=== PATIENT | male | born 1960 | race Caucasian/White ===

== ENCOUNTER 2016-12-03 00:52 | Emergency (ER) | payer BC ==
--- NOTE | ~2016-12-03 | ER ---
PATIENT'S NAME: PEDRO LUIS BAUMAN [facility] AGE: 56 Y [address] ROOM: [place] [address] LOCATION: [facility] ADMIT DATE: 12/03/2016 ER/Outpatient Report DISCHARGE DATE: FAMILY PHYSICIAN: PHYSICIAN, NO ATTENDING PHYSICIAN: Daniele Frazier Admission date and time documented on the medical record. I saw the patient at 0100 hours. CHIEF COMPLAINT: Left low back pain. HISTORY OF PRESENT ILLNESS: The patient is a 56-year-old male, who on morning started to help one of his family members move. So, he did a lot of heavy lifting, pushing, pulling. He developed pain in the left lower back area, acute onset around 0930 hours. He has some chronic back problem with scoliosis and previous back injuries. He has not had any back surgeries. So, he has had an intermittent chronic problem with his back. He has no leg pain. No bowel or bladder dysfunction. No chest pain or shortness of breath. No recent illnesses, cough, cold, flus, fever, chills, or sweats. He does have a history of degenerative osteoarthritis and degenerative disk disease. HOME MEDICATIONS: None. ALLERGIES: NONE. SOCIAL HISTORY: The patient smokes 1-2 packs of cigarettes per day. Nondrinker. SIGNIFICANT PAST MEDICAL HISTORY: Degenerative osteoarthritis, scoliosis, and tobacco abuse. OPERATIONS: None. REVIEW OF SYSTEMS: All systems reviewed by me are negative with exception of those discussed in the history of present illness. PHYSICAL EXAMINATION: VITAL SIGNS: Temperature 97.7, tympanic; pulse 88; respirations 16; blood pressure 121/69; O2 saturation on room air is 94%. PATIENT'S NAME: PEDRO LUIS BAUMAN [facility] AGE: 56 Y [address] ROOM: [place] [address] LOCATION: [facility] ADMIT DATE: 12/03/2016 ER/Outpatient Report DISCHARGE DATE: FAMILY PHYSICIAN: PHYSICIAN, NO ATTENDING PHYSICIAN: Daniele Frazier SPINE: On examination of low back, the patient has spasm and tenderness over the left lumbar paraspinal muscles. Range of motion as far as flexion, extension, abduction, rotation is markedly diminished. Straight leg raising is positive just because of the spasm. NEUROVASCULAR: Intact. Pulses are intact. IMPRESSION: Left low back pain, most likely muscular in etiology. PLAN: The patient was discharged from the emergency department, observation. Activity as tolerated. Avoid lifting, pushing, or pulling. Ice, heat, or combo to sore areas of the low back intermittently as needed. Vilas 10/325 as needed for pain, #16; Flexeril 10 mg 3 times a day, #30; Medrol Dosepak to take as directed. Follow up with personal physician as needed. Discussion ensued with the patient concerning my findings and recommendations, he understands. MD MAVIS GOMEZ/modl /[id number] d: 12/03/16 0359 t: 12/03/16 1813, OUTPATIENT REPORT
== END 2016-12-03 01:21 | disposition disaster alternative care site (69) ==
LOC: GMED 00:52
DX: M54.5 Low back pain (principal); F17.210 Nicotine dependence, cigarettes, uncomplicated

== ENCOUNTER 2017-03-26 14:04 | Emergency (ER) | payer BC ==
--- NOTE | ~2017-03-26 | ER ---
PATIENT'S NAME: PEDRO LUIS BAUMAN [facility] AGE: 56 Y [address] ROOM: [place] [address] LOCATION: [facility] ADMIT DATE: 03/26/2017 ER/Outpatient Report DISCHARGE DATE: 03/26/2017 FAMILY PHYSICIAN: PHYSICIAN, NO ATTENDING PHYSICIAN: Mckinley Thomas Time of Arrival: 1404. Time of Evaluation: 1414. CHIEF COMPLAINT: Tooth pain. HISTORY OF PRESENT ILLNESS: The patient is a 56-year-old male, who presents to the emergency department today with chief complaint of tooth pain. He reports this started 3 days prior to arrival. He reports he has been taking Tylenol and Motrin without any relief. He reports he has an appointment to get his teeth pulled. Denies any fevers or chills. No nausea or vomiting. No diarrhea or constipation. He reports he has a history of multiple dental caries in the past. PAST MEDICAL HISTORY: Dental caries. PAST SURGICAL HISTORY: None. SOCIAL HISTORY: The patient smokes a pack per day for 30 years. Denies any alcohol or illicit drug use. ALLERGIES: NO KNOWN DRUG ALLERGIES. MEDICATIONS: Please see list. PRIMARY CARE DOCTOR: None. REVIEW OF SYSTEMS: All systems are reviewed by myself and negative with the exception of those discussed in HPI and past medical history. PHYSICAL EXAMINATION: VITAL SIGNS: Weight 62.6 kg, blood pressure 105/78, pulse 90, respiratory PATIENT'S NAME: PEDRO LUIS BAUMAN [facility] AGE: 56 Y [address] ROOM: [place] [address] LOCATION: [facility] ADMIT DATE: 03/26/2017 ER/Outpatient Report DISCHARGE DATE: 03/26/2017 FAMILY PHYSICIAN: PHYSICIAN, NO ATTENDING PHYSICIAN: Mckinley Thomas rate 18, temperature 98.1, oxygen saturation 97% on room air. GENERAL: The patient is a 56-year-old male, who appears stated age, in mild acute distress. HEENT: Head normocephalic, atraumatic. Pupils are equal, round, and reactive to light. The patient with a teeth pulled in the upper's. He does have multiple dental caries and in various stages of decay in the lower jaw line. There are no masses palpated. NECK: Supple. There is no nuchal rigidity. CARDIOVASCULAR: Regular rate and rhythm. No murmurs, rubs, or gallops. LUNGS: Clear to auscultation bilaterally. No wheezes, rales, or rhonchi. ABDOMEN: Soft, nontender, and nondistended. No rebound, rigidity, or guarding. MUSCULOSKELETAL: The patient moves all 4 extremities. SKIN: Warm and dry. No rashes or lesions noted. LABORATORY DATA AND X-RAYS: None. IMPRESSION: 1. Dentalgia with dental caries. 2. Initial visit. EMERGENCY DEPARTMENT COURSE: The patient back to the examination room. Seen and evaluated by myself. History and physical performed as described above. I have discussed the results of this with the patient. He reports that he is not taking any pain medicine. However, upon evaluation by me and [place] [employer] [facility], the patient did recently have hydrocodone filled on the and the 7th of this month. With this, we will place the patient on Naprosyn and penicillin. I have asked he follows up with a dentist as soon as possible. I have discussed return to care instructions, including worsening symptoms or any other concerns, he will return to the emergency department as soon as possible. The patient is agreeable without further questions at this time. DISPOSITION/FOLLOW-UP: The patient discharged home in good condition. DO JOHN CARR/ryann PATIENT'S NAME: PEDRO LUIS BAUMAN [facility] AGE: 56 Y [address] ROOM: [place], [place] [address] LOCATION: [facility] ADMIT DATE: 03/26/2017 ER/Outpatient Report DISCHARGE DATE: 03/26/2017 FAMILY PHYSICIAN: PHYSICIAN, NO ATTENDING PHYSICIAN: Mckinley Thomas /[id number] d: 03/26/172022 t: 03/30/17 0640, OUTPATIENT REPORT
== END 2017-03-26 14:24 | disposition disaster alternative care site (69) ==
LOC: GMED 14:04
DX: K02.9 Dental caries, unspecified (principal); F17.210 Nicotine dependence, cigarettes, uncomplicated; Z79.1 Long term (current) use of non-steroidal anti-inflammatories (NSAID); Z79.899 Other long term (current) drug therapy